=== PATIENT | male | born 1990 | race African-American/Black ===

== ENCOUNTER 2017-05-18 10:41 | Emergency (ER) | payer OTHER ==
[~2017-05-18] VITALS: Ht 182.9 cm; Wt 90.9 kg
[2017-05-22 19:40] LABS: CHLAMYDIA TRACH Not Detected (Not Detected); N GONOR Detected (Not Detected)
== END 2017-05-18 11:38 | disposition home or self-care (01) ==
LOC: CFTX 10:41 → CED 10:41 → CFTX 11:22 → CED 11:22 → CFTX 11:38
PROVIDERS: Nurse Practitioner
DX: A54.01 Gonococcal cystitis and urethritis, unspecified (principal)
CPT/HCPCS: 87491; 87591; 96372; 99283; J0696